=== PATIENT | female | born 1980 | race Caucasian/White ===

== ENCOUNTER → 2020-04-08 | Day surgery (SDC) | payer OTHER ==
[~2020-04-08] MED LIST: AMITRIPTYLINE H10 MG PO; DEXAMETHASONE SOD PHOS INJ 4 MG/ML VIAL ONE; FENTANYL CITRATE/PF 100MCG/2 ML INJ ONE; GABAPENTIN300 MG/6 M; LEXAPRO20 MG PO; LIDOCAINE HCL 2% LOCAL INJ 5 ML SDV VIAL INJ ONE; MIDAZOLAM HCL 2 MG/2 ML VIAL ONE; OFLOXACIN 0.3% (OTIC SOL) 5 ML BTL ONE; ONDANSETRON HCL INJ 2MG/ML 2ML 2 MG/ML VIAL ONE; PROPOFOL IV EMULSION 10 MG/ML 20 ML VIAL ONE; SEVOFLURANE INHAL SOLN 250 ML PEN BTL ONE; ULTRAM50 MG PO; [UNRECOGNIZED DRUG - OTHER]; [UNRECOGNIZED DRUG - OTHER]
--- NOTE | 2020-04-08 03:04 | Pre Op History & Physical ---
DATE OF SURGERY: 04/08/2020. CHIEF COMPLAINT: Bilateral eustachian tube dysfunction. HISTORY OF PRESENT ILLNESS: This 39-year-old female has history of aural fullness worse on the left side with decreased hearing in the left with no tinnitus. She has no otalgia. She has a history of migraine. She also has a history of Meniere disease. The patient has been off balance. Her condition has been treated with systemic steroid on diuretics and anxiolytics for unsteadiness with no improvement of the condition. MRI of the skull base was done, which was negative. Audiogram that was done in the past few months ago showed the patient has speech discrimination of 100% bilaterally with moderate high-frequency sensorineural hearing loss on both sides. Audiogram that was done within the past few weeks showed the patient has flat tympanogram on the left side with a negative pressure on the right. REVIEW OF SYSTEMS: System review showed no recent cardiovascular, respiratory, or GI problem. PAST MEDICAL HISTORY: The patient has no significant medical problem. PAST SURGICAL HISTORY: The patient has previous tonsillectomy, cardiac sinus node ablation, hysterectomy, and endoscopic sinus surgery. ALLERGIES: SHE IS ALLERGIC TO BACTRIM, AUGMENTIN, CEFTIN, AND PROMETHAZINE. MEDICATIONS: She is on Lexapro and Neupogen. SOCIAL HISTORY: She is nonsmoker, nondrinker. FAMILY HISTORY: Noncontributory. PHYSICAL EXAMINATION: VITAL SIGNS: Within normal limits. HEENT: Ear exam showed negative pressure on the right side, worse than the left. TMs were intact on both sides. Nasal exam showed hypertrophy of the inferior turbinates. Oropharynx and oral cavity showed no obvious abnormality. NECK: Showed no lymph node or thyroid palpable. CHEST: Showed good air entry bilaterally. CARDIOVASCULAR: Showed S1, S2. No murmur noted. ASSESSMENT AND PLAN: Mrs. Morrison has eustachian tube dysfunction and aural fullness, which could be also secondary to Meniere disease. The suggested treatment is bilateral myringotomy tubes and possible Decadron instillation to the ear and other necessary procedure. The complication of procedure includes, but not limited to bleeding, infection, TM perforation, persistent drainage in the ear, hearing loss, persistent recurrence of the ear problem along with persistent of aural fullness and tinnitus. Alternatives will be continued observation, nasal decongestant, diuretics for the Meniere disease and systemic steroid therapy and intratympanic injection with steroid. Also, bilateral myringotomy tubes in the office. The patient has elected to undergo surgical procedure. MD JAISON Rockwell/MODL /[id number]
[2020-04-08 09:13] VITALS: BP 115/65
--- NOTE | 2020-04-08 10:01 | Operative Report ---
DATE OF PROCEDURE: 04/08/2020 SURGEON: Sameer Jo MD CHIEF COMPLAINT: Eustachian tube dysfunction and Meniere's disease. POSTOPERATIVE DIAGNOSIS: Eustachian tube dysfunction and Meniere's disease. OPERATIVE PROCEDURES: Bilateral myringotomy and tubes. ANESTHESIA: [facility]. INDICATIONS: This 39-year-old female has persistent aural fullness in the ear worse on the left side. The patient has history of Meniere's disease, but also has eustachian tube dysfunction. The patient had an audiogram, which showed that she has [id number] high-frequency sensorineural hearing loss with speech discrimination of 100% bilaterally. Tympanogram that was done showed the patient has flat tympanogram, worse on the left side. On examination, she was noted to have negative pressure in both ears noted. The patient was not able to Valsalva, especially on the left side. She has been treated with topical nasal steroid, systemic steroid, decongestant, topicals, and antibiotics with no improvement of the condition. It was decided that bilateral myringotomy and tubes and other necessary procedure will be beneficial for her. DESCRIPTION OF PROCEDURE: The patient was taken to the operating room, put under general anesthesia, LMA airway created. The right ear was examined. The ear canal was debrided. Myringotomy was done in anterior-superior quadrant. No effusion was noted in middle ear cleft. Corbett grommet tube was inserted. Similar procedure was carried on the left side. After the ear canal was debrided, myringotomy was done in the anterior-inferior quadrant. No effusion was noted in middle ear cleft. Corbett grommet tube was inserted. The patient tolerated the above procedure well with minimal blood loss. She was able to be transferred to recovery room in stable condition. Sameer Jo MD [facility]/MOD[facility] /[id number]
== END | disposition home or self-care (01) ==
LOC: OR 05:22
PROVIDERS: ATTEND Otolaryngology Otolaryngology/Facial Plastic Surgery
DX: H69.80 Other specified disorders of Eustachian tube, unspecified ear (principal); H81.09 Meniere's disease, unspecified ear; H90.3 Sensorineural hearing loss, bilateral; Z88.0 Allergy status to penicillin; Z88.8 Allergy status to other drugs, medicaments and biological substances
CPT/HCPCS: 69436; J1100; J2001; J2250; J2405; J2704; J3010

== ENCOUNTER → 2022-10-26 | Day surgery (SDC) | payer OTHER ==
[~2022-10-26] MED LIST changes: +DEXAMETHASONE SOD PHOS INJ 4 MG/ML SDV ONE; -DEXAMETHASONE SOD PHOS INJ 4 MG/ML VIAL ONE; -GABAPENTIN300 MG/6 M; +GABAPENTIN300 MG/6 M PO; +INVANZ1 GM INJ; +LACTATED RINGER'S 1,000 ML ONE; +LEXAPRO10 MG PO; +NEUPOGEN300 MCG/0. SC; +POVIDONE IODINE 0.05% 0.05 % ML PO ONE
[2022-10-26 08:30] VITALS: BP 124/62
== END | disposition home or self-care (01) ==
LOC: OR 05:27
PROVIDERS: ATTEND Otolaryngology Otolaryngology/Facial Plastic Surgery
DX: H66.93 Otitis media, unspecified, bilateral (principal); H69.83 Other specified disorders of Eustachian tube, bilateral; H81.09 Meniere's disease, unspecified ear; H90.3 Sensorineural hearing loss, bilateral; Z88.1 Allergy status to other antibiotic agents; Z88.0 Allergy status to penicillin; Z88.8 Allergy status to other drugs, medicaments and biological substances; Z79.899 Other long term (current) drug therapy
CPT/HCPCS: 69436; J1100; J2001; J2250; J2405; J2704; J3010; J7121